=== PATIENT | female | born 2000 | race Caucasian/White ===

== ENCOUNTER 2023-06-08 02:12 | Emergency (ER) | payer OTHER, SELFPAY ==
[2023-06-08 02:16] VITALS: BP 131/92
--- NOTE | 2023-06-08 02:38 | ED.GENMED ---
History of Present Illness
General
Chief Complaint: Ear Problem
Source: patient
Exam Limitations: none
Time Seen by Provider: 06/08/23 02:30
Nursing documentation reviewed up to this point in time: agreed with
Travel History
Have you had any contact with someone who has COVID-19?: No
Do you have any symptoms of coronavirus? Fever > 100 degrees, chills, cough, shortness of breath, sore throat, loss of taste or smell, muscle aches, or headache?: No
History of Present Illness
History of Present Illness:
This is a 23-year-old female who complains of several day history of nasal congestion but tonight awoke with abrupt onset of moderate right ear pain. She has not had a fever nor chills, no sore throat, no cough. Her daughter was diagnosed with
otitis media yesterday.
Patient took ibuprofen 200 mg upon waking 2 hours ago, thus far no relief. She has had no drainage from her ear.
She has remote history of asthma, no recent exacerbations and remote history of otitis media as a child.
She denies risk of .
Past History
Past History
ED Past Medical History: Asthma and Psychiatric
ED Past Surgical History: Cholecystectomy
Patient has exhibited threatening behavior?: No
PSI?: No
Social History
Tobacco: Non-smoker
Alcohol: None
Drug: Marijuana (vape (rare))
Personal: Single
Living: with family
Employment: Not employed
Family History
Family History: Other (Noncontributory)
Phy Exam
Physical Exam
Physical Exam:
GENERAL: 23-year-old female appears her stated age. Sitting upright on stretcher, knees crossed/Canadian style, easily communicative and appears in no acute distress. Exhibits a mild nasal, stuffy voice. Her father is accompanying her.
EYE: pupils equal and reactive. anicteric
NECK: Supple, nontender, no meningismus, no significant adenopathy.
ENT: posterior pharynx is clear, oral mucosa is moist. Left TM is clear. Right TM is significantly red, dull but not bulging. Canal is clear. Nares have moderately boggy pale blue turbinates with scant clear rhinorrhea.
CARDIAC: Regular rate and rhythm. no murmur.
LUNGS: Clear breath sounds bilaterally, no acute respiratory distress, no wheezes/rales/rhonchi
ABDOMEN: Soft, nondistended, without focal tenderness
NEUROLOGICAL: Alert and oriented x3, no focal neuro deficits. Gait is claros and steady.
SKIN: Warm and dry, normal color, skin intact. No rash.
MUSCULOSKELETAL: No C/C/E. peripheral pulses are full and equal b/l. No palpable tenderness.
PSYCH: Normal and appropriate interaction.
Course
Orders/Labs/Results
Orders:
Orders
06/08/23 02:36
Doxycycline [Vibramycin] 100 mg PO NOW STA
Ketorolac [Toradol] 60 mg IM NOW STA
Vital Signs
Initial and Last Documented VS:
Initial Vital Signs
Temp Pulse Resp BP Pulse Ox
98.1 F 83 16 131/92 98
06/08/23 02:16 06/08/23 02:16 06/08/23 02:16 06/08/23 02:16 06/08/23 02:16
Last Documented Vital Signs
Temp Pulse Resp BP Pulse Ox
98.1 F 83 16 131/92 98
06/08/23 02:16 06/08/23 02:16 06/08/23 02:16 06/08/23 02:16 06/08/23 02:16
MDM/Problems Addressed
Differential Diagnosis Includes:
Patient presents with acute right ear pain tonight and exam consistent with acute otitis media.
She is also noted to have moderate allergic rhinitis on exam and does note several day history of nasal congestion prior to onset of ear pain tonight.
She is afebrile and overall nontoxic in appearance.
Will treat acute otitis media with a 10-day course of doxycycline and recommend she start a daily antihistamine such as Claritin, Zyrtec, Ara for allergic rhinitis and will add Flonase nasal spray as well.
Will give a dose of Toradol for pain and recommend she continue [id number] ibuprofen but increase to 600 to 800 mg per dose every 6-8 hours as needed for pain.
Other supportive measures discussed including elevating head of bed on several extra pillows, local heat such as heating pad to her ear may be of comfort as well.
Prompt follow-up with PCP for recheck.
*Pulse Oximetry
Patient hypoxic: no
*Critical Care Note
Total Time (30-74mins, 75-104mins- exclusive of procedures): Not Applicable
ED Attending Note
-
Portions of this chart may have been created with voice recognition software.� Occasional wrong word or��sound alike� substitutions may have occurred due to the inherent limitations of voice recognition software.
Discharge Plan
Departure
Patient Disposition: Home (Routine Discharge)
Date of Disposition: 06/08/23
Time of Disposition: 02:38
Patient with high blood pressure during this ER visit?: No
Condition: Good
Discharge Problem:
Acute right otitis media
Instructions: Ear Infections (Otitis Media) in Adults (DC)
Prescriptions:
New
doxycycline monohydrate 100 mg capsule
100 mg PO BID Qty: 20 1RF
fluticasone propionate 50 mcg/actuation spray,suspension
2 spray intranasal DAILY Qty: 16 0RF
No Action
fluoxetine [Prozac] 20 mg Capsule
20 mg PO DAILY
Referrals:
Gretel Mendoza PA [Family Provider] - Call in 1-3 days for appt
Interventions
Interventions:
*Risk Screen - Suicide Last Done: 06/08/23 02:16
*Neglect/Abuse Screening Last Done: 06/08/23 02:16
*ED COVID-19 Vaccine History Last Done: 06/08/23 02:16
[2023-06-08] MEDS: VIBRAMYCIN 100 MG PO (02:40)
[2023-06-08] MEDS: TORADOL 60 MG IM (02:41)
== END 2023-06-08 02:54 | disposition home or self-care (01) ==
LOC: EMR 02:12
PROVIDERS: EMERGENCY PHYSICIAN Emergency Medicine; FAMILY PHYSICIAN Physician Assistant
DX: H66.91 Otitis media, unspecified, right ear (principal)
CPT/HCPCS: 99284; 96372

== ENCOUNTER 2023-07-10 16:03 | Emergency (ER) | payer OTHER, SELFPAY ==
[2023-07-10 16:12] VITALS: BP 125/85
[2023-07-10 16:38] LABS: % Basophils 0.4 % (0-2); % Immature Granulocytes 0.3 % (0-0.5); % Lymphocytes 28.7 % (20.5-51.1); % Monocytes 7.1 % (1.7-9.3); % Neutrophils 60.5 % (42.2-75.2); Absolute Basophils 0.1 10^3/uL (0-0.2); Absolute Eosinophils 0.3 10^3/uL (0-0.7); Absolute Lymphocytes 3.3 10^3/uL (1.2-3.4); Absolute Monocytes 0.8 10^3/uL (0.1-0.6); Absolute Neutrophils 6.9 10^3/uL (1.4-6.5); Hematocrit 33.4 % (37.0-47.0); Hemoglobin 12.2 g/dL (12.0-16.0); Mean Corp Hgb Conc. 36.5 g/dL (33.0-37.0); Mean Corpuscular Hgb 30.6 pg (27.0-31.0); Mean Corpuscular Volume 83.7 fL (81.0-99.0); Mean Platelet Volume 8.6 fL (7.4-10.4); Nucleated Red Blood Cells % 0 %; Platelet Count 407 10^3/uL (130-400); Red Blood Cell Count 3.99 10^6/uL (4.20-5.40); Red Cell Dist. Width 13.2 % (11.5-14.5); White Blood Cell Count 11.5 10^3/uL (4.8-10.8)
[2023-07-10 16:52] LABS: HCG, Serum Qualitative Screen Positive
[2023-07-10 16:53] LABS: ALT (SGPT) 29 U/L (0-35); AST (SGOT) 30 U/L (14-36); Albumin 4.2 g/dl (3.5-5.0); Alkaline Phosphatase 97 U/L (38-126); Blood Urea Nitrogen 13 mg/dl (7-17); Calcium 9.2 mg/dl (8.4-10.2); Carbon Dioxide 25 mmol/L (22-30); Chloride 106 mmol/L (98-107); Glucose 89 mg/dl (70-99); Potassium 4.2 mmol/L (3.5-5.1); Sodium 135 mmol/L (135-145); Total Bilirubin 0.4 mg/dl (0.2-1.3); Total Protein 7.5 g/dl (6.3-8.2); eGFR > 60.00
[2023-07-10 17:37] LABS: Beta HCG Quantitative 62.45 mIU/ml
--- NOTE | 2023-07-10 18:28 | ED.GENMED ---
History of Present Illness
General
Chief Complaint: Throat Problem
Source: patient
Exam Limitations: none
Time Seen by Provider: 07/10/23 17:37
Nursing documentation reviewed up to this point in time: agreed with
Travel History
Have you had any contact with someone who has COVID-19?: No
Do you have any symptoms of coronavirus? Fever > 100 degrees, chills, cough, shortness of breath, sore throat, loss of taste or smell, muscle aches, or headache?: No
History of Present Illness
History of Present Illness:
23-year-old female past medical history of asthma presenting to the emergency department today with concerns of a positive home test over the past day but also having some sore throat symptoms patient's significant other additionally had
strep throat previously. Denies additional concerns no vaginal bleeding discharge or abdominal pain.
Past History
Past History
ED Past Medical History: Asthma and Psychiatric
ED Past Surgical History: Cholecystectomy
Patient has exhibited threatening behavior?: No
PSI?: No
Social History
Tobacco: Non-smoker
Alcohol: None
Drug: Marijuana (vape (rare))
Personal: Single
Living: with family
Employment: Not employed
Family History
Family History: Other (Noncontributory)
Review of Systems
Review of Systems
Allergies reviewed?: Yes
All Other Systems: ROS reviewed and negative except as documented in HPI and ROS
Phy Exam
Physical Exam
Physical Exam:
GENERAL: Alert , in no apparent distress
EYE: pupils equal and reactive
NECK: Supple, no significant adenopathy.
ENT: Postnasal drip to posterior pharynx no significant tonsillar swelling. o/p clr, mmm.
CARDIAC: Regular rate and rhythm .
LUNGS: Clear breath sounds bilaterally, no acute respiratory distress, no wheezes/rales/rhonchi
ABDOMEN: Soft, without focal tenderness, no r/g, no cvat
NEUROLOGICAL: Alert and oriented, no focal neuro deficits
SKIN: Warm and dry, skin intact.
MUSCULOSKELETAL: No edema, well perfused.
PSYCH: Normal and appropriate interaction.
Course
Orders/Labs/Results
Orders:
Orders
07/10/23 16:15
Test Result ONCE
07/10/23 16:21
Beta HCG Quantitative Urgent
Complete Blood Count/With Diff Urgent
Comprehensive Metabolic Panel Urgent
HCG, Serum Qualitative Screen Urgent
07/10/23 16:55
Add On- LAB Urgent
Tests Added?: hcg quant
Abnormal Lab Results
07/10/23
16:21
WBC 11.5 H 10^3/uL
(4.8-10.8)
RBC 3.99 L 10^6/uL
(4.20-5.40)
Hct 33.4 L %
(37.0-47.0)
Plt Count 407 H 10^3/uL
(130-400)
Absolute Neuts (auto) 6.9 H 10^3/uL
(1.4-6.5)
Absolute Monos (auto) 0.8 H 10^3/uL
(0.1-0.6)
07/10/23 16:21
07/10/23 16:21
Vital Signs
Initial and Last Documented VS:
Initial Vital Signs
Temp Pulse Resp BP Pulse Ox
98.3 F 93 18 125/85 98
07/10/23 16:12 07/10/23 16:12 07/10/23 16:12 07/10/23 16:12 07/10/23 16:12
Last Documented Vital Signs
Temp Pulse Resp BP Pulse Ox
98.3 F 93 18 125/85 98
07/10/23 16:12 07/10/23 16:12 07/10/23 16:12 07/10/23 16:12 07/10/23 16:12
MDM/Problems Addressed
MDM/Problems Addressed:
23-year-old female presenting to the emergency department today with concerns of home test without any significant pelvic symptoms discharge bleeding or pain. Patient additionally has a mild sore throat with swallowing denies any swollen
lymph nodes or fevers. Posterior pharynx with some postnasal drip she was advised to use Flonase but otherwise stable for discharge patient was found to be with a low quant she was advised for close outpatient follow-up with pharmacy specialist.
Return precautions given.
*Critical Care Note
Total Time (30-74mins, 75-104mins- exclusive of procedures): Not Applicable
ED Attending Note
-
Portions of this chart may have been created with voice recognition software.� Occasional wrong word or��sound alike� substitutions may have occurred due to the inherent limitations of voice recognition software.
Discharge Plan
Departure
Patient Disposition: Home (Routine Discharge)
Date of Disposition: 07/10/23
Time of Disposition: 18:33
Patient with high blood pressure during this ER visit?: No
Condition: Good
Covid-19: Not Applicable
Discharge Problem:
Post-nasal drip,
Instructions: hCG Test
Prescriptions:
New
fluticasone propionate [24 Hour Allergy Relief] 50 mcg/actuation spray,suspension
1 spray intranasal DAILY Qty: 16 0RF
No Action
fluoxetine [Prozac] 20 mg Capsule
20 mg PO DAILY
doxycycline monohydrate 100 mg capsule
100 mg PO BID Qty: 20 1RF
fluticasone propionate 50 mcg/actuation spray,suspension
2 spray intranasal DAILY Qty: 16 0RF
Referrals:
Gretel Mendoza PA [Family Provider] -
Activity Restrictions/Additional Instructions:
You came to the emergency department today and were found to have a positive test. Please follow closely with your pharmacy specialist. Additionally use the Flonase to help with the postnasal drip. Return to the emergency department for any
worsening, new or concerning symptoms.
Interventions
Interventions:
*Risk Screen - Suicide Last Done: 07/10/23 16:12
*General Assessment Last Done: 07/10/23 16:12
*Neglect/Abuse Screening Last Done: 07/10/23 16:12
*ED COVID-19 Vaccine History Last Done: 07/10/23 16:12
Discharge Date and Time
Print Language: EGYPTIAN
== END 2023-07-10 18:55 | disposition home or self-care (01) ==
LOC: EMR 16:03
PROVIDERS: Emergency Medicine; EMERGENCY PHYSICIAN Emergency Medicine; FAMILY PHYSICIAN Physician Assistant
DX: O99.891 Other specified diseases and conditions complicating pregnancy (principal); R09.82 Postnasal drip; J45.909 Unspecified asthma, uncomplicated
CPT/HCPCS: 99283; 80053; 84702; 84703; 85025

== ENCOUNTER 2023-08-11 15:53 | Emergency (ER) | payer OTHER, SELFPAY ==
[2023-08-11 16:06] VITALS: BP 102/62
[2023-08-11 16:27] LABS: % Basophils 0.2 % (0-2); % Immature Granulocytes 0.3 % (0-0.5); % Lymphocytes 20.1 % (20.5-51.1); % Monocytes 4.7 % (1.7-9.3); % Neutrophils 73.7 % (42.2-75.2); Absolute Eosinophils 0.1 10^3/uL (0-0.7); Absolute Lymphocytes 2.5 10^3/uL (1.2-3.4); Absolute Monocytes 0.6 10^3/uL (0.1-0.6); Absolute Neutrophils 9.2 10^3/uL (1.4-6.5); Hematocrit 33.5 % (37.0-47.0); Hemoglobin 12.3 g/dL (12.0-16.0); Mean Corp Hgb Conc. 36.7 g/dL (33.0-37.0); Mean Corpuscular Hgb 30.8 pg (27.0-31.0); Mean Platelet Volume 8.6 fL (7.4-10.4); Nucleated Red Blood Cells % 0 %; Platelet Count 401 10^3/uL (130-400); Red Blood Cell Count 3.99 10^6/uL (4.20-5.40); Red Cell Dist. Width 12.3 % (11.5-14.5); White Blood Cell Count 12.5 10^3/uL (4.8-10.8)
[2023-08-11 16:41] LABS: ALT (SGPT) 23 U/L (0-35); AST (SGOT) 28 U/L (14-36); Albumin 4.3 g/dl (3.5-5.0); Alkaline Phosphatase 116 U/L (38-126); Blood Urea Nitrogen 9 mg/dl (7-17); Carbon Dioxide 21 mmol/L (22-30); Chloride 104 mmol/L (98-107); Glucose 97 mg/dl (70-99); Sodium 136 mmol/L (135-145); Total Bilirubin 0.5 mg/dl (0.2-1.3); Total Protein 7.4 g/dl (6.3-8.2); eGFR > 60.00
[2023-08-11 16:42] LABS: Lipase 96 U/L (23-300)
[2023-08-11 18:21] VITALS: BMI 44.2
[2023-08-11 18:26] VITALS: BP 131/77
[2023-08-11] MEDS: NSS 1000 IV (19:02)
[2023-08-11] MEDS: ZOFRAN 4 MG IV (19:02)
[2023-08-11 19:13] LABS: Urine Albumin Trace (Neg - Trace); Urine Bilirubin 1+ (Negative); Urine Character Very Cloudy (Clear); Urine Color Yellow; Urine Glucose Negative (Negative); Urine Ketone 1+ (Negative); Urine Leukocyte Trace (Negative); Urine Nitrite Negative (Negative); Urine Occult Blood Negative (Negative); Urine Urobilinogen Negative (Neg - 1+)
--- NOTE | 2023-08-11 19:35 | ED.GENMED ---
History of Present Illness
General
Chief Complaint: Abdominal Symptoms
Source: patient
Time Seen by Provider: 08/11/23 16:55
Travel History
Have you had any contact with someone who has COVID-19?: No
Do you have any symptoms of coronavirus? Fever > 100 degrees, chills, cough, shortness of breath, sore throat, loss of taste or smell, muscle aches, or headache?: No
History of Present Illness
History of Present Illness:
23-year-old female presents to the emergency room complaining of nausea, vomiting and also some low back pain. Patient is 8 weeks . This is her second . She had hyperemesis with her first . Patient does not have any
real abdominal pain. She denies dysuria. She has decreased urine output. She did not have anything at home to take for nausea.
Past History
Past History
ED Past Medical History: Asthma and Psychiatric
ED Past Surgical History: Cholecystectomy
Patient has exhibited threatening behavior?: No
PSI?: No
Social History
Tobacco: Non-smoker
Alcohol: None
Drug: Marijuana (vape (rare))
Personal: Single
Living: with family
Employment: Not employed
Family History
Family History: Other (Noncontributory)
Phy Exam
Physical Exam
Physical Exam:
General: Awake, Alert, Oriented X3. No acute distress.
Vitals: unremarkable
Head: Atraumatic
Eyes: Pupils equal, EOMI
Throat: Airway intact, no exudates
Neck: Trachea midline
Lungs: Clear and equal b/l
Heart: Regular rate, no murmurs
Abd: Soft, Nontender, No pulsatile mass
Back: Diffuse tenderness to palpation of the lower lumbar region.
Neuro: Nonfocal
Skin: Warm, dry, no rash
Extremities: pulses equal b/l, no edema
Course
Orders/Labs/Results
Orders:
Orders
08/11/23 16:13
Complete Blood Count/With Diff Urgent
Comprehensive Metabolic Panel Urgent
HCG, Beta Quantitative [Beta HCG Quantitative] Urgent
Is this a screen?: No
Lipase Urgent
08/11/23 18:33
0.9% Sodium Chloride 1000 ml [Nss] 1,000 ml IV BOLUS
08/11/23 18:34
Ondansetron Injectable [Zofran] 4 mg IV NOW STA
08/11/23 18:59
Urinalysis Reflex To Culture Urgent
Date Specimen was Collected: 08/11/23
Time Specimen was Collected: 18:42
Urine Microscopic Reflex Cult Urgent
Abnormal Lab Results
08/11/23 08/11/23
16:13 18:59
WBC 12.5 H 10^3/uL
(4.8-10.8)
RBC 3.99 L 10^6/uL
(4.20-5.40)
Hct 33.5 L %
(37.0-47.0)
Plt Count 401 H 10^3/uL
(130-400)
Absolute Neuts (auto) 9.2 H 10^3/uL
(1.4-6.5)
Lymphocytes % 20.1 L %
(20.5-51.1)
Carbon Dioxide 21 L mmol/L
(22-30)
Urine Ketones 1+ A
(Negative)
Urine Bilirubin 1+ A
(Negative)
Leukocyte Esterase Rfl Trace A
(Negative)
Urine Bacteria (Reflex) Few A
(Negative)
08/11/23 16:13
08/11/23 16:13
Vital Signs
Initial and Last Documented VS:
Initial Vital Signs
Temp Pulse Resp BP Pulse Ox
98.2 F 78 18 102/62 99
08/11/23 16:06 08/11/23 16:06 08/11/23 16:06 08/11/23 16:06 08/11/23 16:06
Last Documented Vital Signs
Temp Pulse Resp BP Pulse Ox
98.2 F 73 18 131/77 99
08/11/23 16:06 08/11/23 18:30 08/11/23 18:30 08/11/23 18:26 08/11/23 16:06
MDM/Problems Addressed
Differential Diagnosis Includes:
Hyperemesis, viral gastritis, pyelonephritis
MDM/Problems Addressed:
Urinalysis is cloudy but shows no significant signs of infection.
Labs are reassuring. She has a mild elevation of her white blood cell count which very well may be simply from retching. Patient feeling better after Zofran.
*Pulse Oximetry
Patient hypoxic: no
*Critical Care Note
Total Time (30-74mins, 75-104mins- exclusive of procedures): Not Applicable
ED Attending Note
-
Portions of this chart may have been created with voice recognition software.� Occasional wrong word or��sound alike� substitutions may have occurred due to the inherent limitations of voice recognition software.
Discharge Plan
Departure
Patient Disposition: Home (Routine Discharge)
Date of Disposition: 08/11/23
Time of Disposition: 19:43
Patient with high blood pressure during this ER visit?: No
Condition: Good
Discharge Problem:
Nausea and vomiting during
Instructions: Nausea and Vomiting, Adult (DC), Morning Sickness ED
Prescriptions:
New
ondansetron 4 mg tablet,disintegrating
4 mg PO TID PRN (Reason: nausea and vomiting) Qty: 20 0RF
No Action
fluoxetine [Prozac] 20 mg Capsule
20 mg PO DAILY
doxycycline monohydrate 100 mg capsule
100 mg PO BID Qty: 20 1RF
fluticasone propionate 50 mcg/actuation spray,suspension
2 spray intranasal DAILY Qty: 16 0RF
fluticasone propionate [24 Hour Allergy Relief] 50 mcg/actuation spray,suspension
1 spray intranasal DAILY Qty: 16 0RF
Referrals:
Gretel Mendoza PA [Family Provider] -
Interventions
Interventions:
*Risk Screen - Suicide Last Done: 08/11/23 17:29
*General Assessment Last Done: 08/11/23 16:06
*Neglect/Abuse Screening Last Done: 08/11/23 17:29
ED- Fall Risk Assessment Last Done: 08/11/23 17:29
*ED COVID-19 Vaccine History Last Done: 08/11/23 16:06
*Nursing Disposition Last Done: 08/11/23 19:57
BY-Bjspto-Nnshhvcwui Assessment Last Done: 08/11/23 17:29
Discharge Date and Time
Discharge Date/Time: 08/11/23 19:57
Print Language: TELUGU
[2023-08-11 20:07] LABS: Urine Amorphous Seen
[2023-08-11 20:08] LABS: Urine Bacteria Few (Negative); Urine Red Blood Cell 0-2 /HPF (0-2); Urine White Cell 0-2 /HPF (0-5)
== END 2023-08-11 19:57 | disposition home or self-care (01) ==
LOC: EMR 15:53
PROVIDERS: EMERGENCY PHYSICIAN Emergency Medicine; FAMILY PHYSICIAN Physician Assistant
DX: O26.891 Other specified pregnancy related conditions, first trimester (principal); O21.9 Vomiting of pregnancy, unspecified; Z3A.08 8 weeks gestation of pregnancy
CPT/HCPCS: 99284; 96374; 96361; 80053; 81003; 81015; 83690; 84702; 85025

== ENCOUNTER 2023-08-28 10:26 | Emergency (ER) | payer OTHER, SELFPAY ==
[2023-08-28 11:00] VITALS: BP 130/83
--- NOTE | 2023-08-28 12:02 | ED.GENMED ---
History of Present Illness
General
Chief Complaint: Abdominal Symptoms
Source: patient
Exam Limitations: none
Time Seen by Provider: 08/28/23 11:08
Nursing documentation reviewed up to this point in time: agreed with
Travel History
Have you had any contact with someone who has COVID-19?: No
Do you have any symptoms of coronavirus? Fever > 100 degrees, chills, cough, shortness of breath, sore throat, loss of taste or smell, muscle aches, or headache?: No
History of Present Illness
History of Present Illness:
Patient is a 23-year-old female G2, P1 who is currently 11 weeks and followed by [facility]. Patient reports that she has had intermittent nausea and vomiting throughout the but worse over the last 2 days. She
denies abdominal pain, dysuria and any vaginal bleeding. Patient reports she had hyperemesis with her first as well. Patient reports she vomited about 10 times between yesterday and today. She denies diarrhea. She reports she took
Zofran but this did not help her.
Past History
Past History
ED Past Medical History: Asthma and Psychiatric
ED Past Surgical History: Cholecystectomy
Patient has exhibited threatening behavior?: No
PSI?: No
Social History
Tobacco: Non-smoker
Alcohol: None
Drug: Marijuana (vape (rare))
Personal: Other
Living: with family
Employment: Not employed
Family History
Family History: Other (Noncontributory)
Review of Systems
Review of Systems
Allergies reviewed?: Yes
All Other Systems: ROS reviewed and negative except as documented in HPI and ROS
Constitutional: Reports no symptoms
EENT: Reports no symptoms
Respiratory: Reports no symptoms
Cardiac: Reports no symptoms
ABD/GI: Reports nausea and vomiting
: Reports no symptoms
Musculoskeletal: Reports no symptoms
Skin: Reports no symptoms
Neurological: Reports no symptoms
Endocrine: Reports no symptoms
Hematologic/Lymphatic: Reports no symptoms
Psychiatric: Reports no symptoms
Phy Exam
Physical Exam
Physical Exam:
Physical Exam
General: no apparent distress, not acutely ill. Well and comfortable appearing
Neck: supple. no meningeal signs. normal psoterior pharynx
Heart: s1/s2 regular rate and rhythm, no murmur. equal radial pulses.
Lungs: no acute respiratory distress. clear bilaterally
Abdomen: normal bowel sounds. not tender. no CVAT
Neuro: alert and oriented. no focal neurological deficits
Skin: no rash
Psychiatric: well kept. interactive and cooperative
Extremities: no edema. no calf tenderness. negative homans. good distal pulses
Course
Orders/Labs/Results
Orders:
Orders
08/28/23 12:01
0.9% Sodium Chloride 1000 ml [Nss] 1,000 ml IV BOLUS
08/28/23 12:14
Complete Blood Count/With Diff Urgent
Comprehensive Metabolic Panel Urgent
08/28/23 12:42
Prochlorperazine [Compazine] 10 mg IV NOW STA
08/28/23 12:46
Pyridoxine [Vitamin B-6] 25 mg PO NOW STA
Abnormal Lab Results
08/28/23
12:14
RBC 3.53 L 10^6/uL
(4.20-5.40)
Hgb 10.9 L g/dL
(12.0-16.0)
Hct 29.8 L %
(37.0-47.0)
Absolute Lymphs (auto) 1.0 L 10^3/uL
(1.2-3.4)
Absolute Monos (auto) 0.7 H 10^3/uL
(0.1-0.6)
Neutrophils % 77.0 H %
(42.2-75.2)
Lymphocytes % 13.4 L %
(20.5-51.1)
08/28/23 12:14
08/28/23 12:14
Vital Signs
Initial and Last Documented VS:
Initial Vital Signs
Temp Pulse Resp BP Pulse Ox
98.1 F 91 18 130/83 97
08/28/23 11:00 08/28/23 11:00 08/28/23 11:00 08/28/23 11:00 08/28/23 11:00
Last Documented Vital Signs
Temp Pulse Resp BP Pulse Ox
98.1 F 91 18 130/83 97
08/28/23 11:00 08/28/23 11:00 08/28/23 11:00 08/28/23 11:00 08/28/23 11:00
MDM/Problems Addressed
Differential Diagnosis Includes:
Hyperemesis gravidarum, acute cholecystitis, acute dehydration
MDM/Problems Addressed:
Patient presents with acute nausea and vomiting
*Pulse Oximetry
Patient hypoxic: no
*EKG
Interpreted by ED Provider?: NA
*High School Teacher Interpretation
Rate: High School Teacher- N/A
*Critical Care Note
Total Time (30-74mins, 75-104mins- exclusive of procedures): Not Applicable
Data Reviewed
Review of Other/Old Records Reveals: Labs (Lab work reviewed from 08/11/2023 which shows a mildly elevated white blood cell count)
Source: patient
Patient Management
Discussion with other providers: Other (Spoke to Dr. Sorto via [facility] text who recommended Diclegis, Compazine, Bonjesta)
Update Note
Update Note:
1:40 PM patient reports she feels much better and wants to go home. Her abdomen remains soft and nontender.
ED Attending Note
-
Portions of this chart may have been created with voice recognition software.� Occasional wrong word or��sound alike� substitutions may have occurred due to the inherent limitations of voice recognition software.
Discharge Plan
Departure
Patient Disposition: Home (Routine Discharge)
Date of Disposition: 08/28/23
Time of Disposition: 13:35
Patient with high blood pressure during this ER visit?: Yes
Condition: Good
Covid-19: Not Applicable
Discharge Problem:
Hyperemesis gravidarum
Instructions: Morning Sickness ED
Prescriptions:
New
pyridoxine (vitamin B6) [Vitamin B-6] 25 mg tablet
25 mg PO TID PRN (Reason: nausea and vomiting) Qty: 30 0RF
No Action
fluoxetine [Prozac] 20 mg Capsule
20 mg PO DAILY
doxycycline monohydrate 100 mg capsule
100 mg PO BID Qty: 20 1RF
fluticasone propionate 50 mcg/actuation spray,suspension
2 spray intranasal DAILY Qty: 16 0RF
fluticasone propionate [24 Hour Allergy Relief] 50 mcg/actuation spray,suspension
1 spray intranasal DAILY Qty: 16 0RF
ondansetron 4 mg tablet,disintegrating
4 mg PO TID PRN (Reason: nausea and vomiting) Qty: 20 0RF
Referrals:
Gretel Mendoza PA [Family Provider] -
Estrellita Sorto MD [Active] - (Follow up within 1 week)
Interventions
Interventions:
*Risk Screen - Suicide Last Done: 08/28/23 11:01
*General Assessment Last Done: 08/28/23 11:01
*Neglect/Abuse Screening Last Done: 08/28/23 11:01
ED- Fall Risk Assessment Last Done: 08/28/23 11:57
*ED COVID-19 Vaccine History Last Done: 08/28/23 11:09
*Nursing Disposition Last Done: 08/28/23 13:40
QC-Cnvajk-Heqtpaelzx Assessment Last Done: 08/28/23 11:56
ED-Female Genitourinary Assessment Last Done: 08/28/23 11:56
Discharge Date and Time
Print Language: ZAMBIAN
[2023-08-28] MEDS: NSS 1000 IV (12:15)
[2023-08-28 12:24] LABS: % Basophils 0.3 % (0-2); % Eosinophils 0.1 % (0-6); % Immature Granulocytes 0.3 % (0-0.5); % Lymphocytes 13.4 % (20.5-51.1); % Monocytes 8.9 % (1.7-9.3); Absolute Monocytes 0.7 10^3/uL (0.1-0.6); Absolute Neutrophils 5.7 10^3/uL (1.4-6.5); Hematocrit 29.8 % (37.0-47.0); Hemoglobin 10.9 g/dL (12.0-16.0); Mean Corp Hgb Conc. 36.6 g/dL (33.0-37.0); Mean Corpuscular Hgb 30.9 pg (27.0-31.0); Mean Corpuscular Volume 84.4 fL (81.0-99.0); Mean Platelet Volume 8.7 fL (7.4-10.4); Nucleated Red Blood Cells % 0 %; Platelet Count 246 10^3/uL (130-400); Red Blood Cell Count 3.53 10^6/uL (4.20-5.40); Red Cell Dist. Width 12.7 % (11.5-14.5); White Blood Cell Count 7.4 10^3/uL (4.8-10.8)
[2023-08-28 12:52] LABS: ALT (SGPT) 23 U/L (0-35); AST (SGOT) 26 U/L (14-36); Albumin 3.6 g/dl (3.5-5.0); Alkaline Phosphatase 100 U/L (38-126); Blood Urea Nitrogen 9 mg/dl (7-17); Calcium 9.1 mg/dl (8.4-10.2); Carbon Dioxide 23 mmol/L (22-30); Chloride 104 mmol/L (98-107); Glucose 90 mg/dl (70-99); Potassium 3.8 mmol/L (3.5-5.1); Sodium 136 mmol/L (135-145); Total Bilirubin 0.5 mg/dl (0.2-1.3); Total Protein 6.6 g/dl (6.3-8.2); eGFR > 60.00
[2023-08-28] MEDS: VITAMIN B-6 25 MG PO (13:15)
[2023-08-28] MEDS: COMPAZINE 10 MG IV (13:15)
== END 2023-08-28 14:10 | disposition home or self-care (01) ==
LOC: EMR 10:26
PROVIDERS: EMERGENCY PHYSICIAN Emergency Medicine; FAMILY PHYSICIAN Physician Assistant
DX: O21.0 Mild hyperemesis gravidarum (principal); Z3A.11 11 weeks gestation of pregnancy; O99.511 Diseases of the respiratory system complicating pregnancy, first trimester; J45.909 Unspecified asthma, uncomplicated; Z90.49 Acquired absence of other specified parts of digestive tract; R03.0 Elevated blood-pressure reading, without diagnosis of hypertension; Z88.1 Allergy status to other antibiotic agents
CPT/HCPCS: 99284; 96374; 96361; 80053; 85025

== ENCOUNTER → 2023-09-14 09:27 | Outpatient (REF) | payer OTHER, SELFPAY | LOC: PNTC 09:27 | PROVIDERS: ATTENDING PHYSICIAN Obstetrics & Gynecology | DX: Z36.0 Encounter for antenatal screening for chromosomal anomalies (principal); Z36.82 Encounter for antenatal screening for nuchal translucency | CPT/HCPCS: 59025; 76801; 76813 ==

== ENCOUNTER → 2023-10-05 13:33 | Outpatient (REF) | payer OTHER, SELFPAY | LOC: PNTC 13:33 | PROVIDERS: ATTENDING PHYSICIAN Obstetrics & Gynecology | DX: O99.210 Obesity complicating pregnancy, unspecified trimester (principal); Z34.80 Encounter for supervision of other normal pregnancy, unspecified trimester | CPT/HCPCS: 76805 ==

== ENCOUNTER 2023-10-16 09:21 | Emergency (ER) | payer OTHER, SELFPAY ==
[2023-10-16 09:29] VITALS: BP 122/74
--- NOTE | 2023-10-16 10:15 | ED.GENMED ---
History of Present Illness
General
Chief Complaint: Headache
Source: patient
Exam Limitations: none
Time Seen by Provider: 10/16/23 10:05
Nursing documentation reviewed up to this point in time: agreed with
History of Present Illness
History of Present Illness:
23 yo female 18 weeks is here for headache. She is nauseous and has vomited a couple of times during this and states she knows this is from early and would not be here for the n/v, rather, she is here for a
headache. She did vomit once this a.m. States headache started 2 p.m as she and her boyfriend were picking up totes from a yard sale. H/A came on suddenly and has been constant, frontal, 11/27, she continued her day, doing errands and went to [employer] for dinner. Didn't sleep well last night due to h/a, has taken nothing for the headache as she didn't think she could take anything due to being .
No recent head injury. Denies dizziness, weakness, is ambulating well.
First visit with [facility] in 2-3 weeks.
Past History
Past History
ED Past Medical History: Asthma and Psychiatric
ED Past Surgical History: Cholecystectomy
Patient has exhibited threatening behavior?: No
PSI?: No
Social History
Tobacco: Non-smoker
Alcohol: None
Drug: Marijuana (vape (rare))
Personal: Other
Living: with family
Employment: Not employed
Family History
Family History: Other (Noncontributory)
Review of Systems
Review of Systems
Allergies reviewed?: Yes
All Other Systems: ROS reviewed and negative except as documented in HPI and ROS
Constitutional: Denies fever or fatigue
Respiratory: Denies trouble breathing
Cardiac: Denies chest pain
ABD/GI: Reports nausea and vomiting; Denies abdominal pain or diarrhea
: Denies dysuria or difficulty voiding
Musculoskeletal: Reports no symptoms
Skin: Reports no symptoms
Neurological: Reports headache; Denies dizzy, weakness or numbness
Phy Exam
Physical Exam
Physical Exam:
GENERAL: No acute distress. A&Ox3.
CONSTITUTIONAL: Afebrile.
EYES: PERRL, conjunctivae normal
Neck: Supple
ENMT: moist mucus membranes, Pharynx nl
RESPIRATORY: Regular respirations, nonlabored, lungs clear.
CARDIOVASCULAR: Regular rate and rhythm, no murmurs, no rubs.
GI: Soft, nontender, normal BS
MUSCULOSKELETAL: Moves with ease. Well perfused.
SKIN: Warm, dry, pink
PSYCH: Normal mood and affect. Well kept, interactive and appropriate
NEUROLOGIC: Awake, alert and oriented. Cranial nerves II through XII intact. [id number] intact. No focal neurological deficits. Ambulates well with steady gait.
Course
Orders/Labs/Results
Orders:
Orders
10/16/23 10:14
Acetaminophen [Tylenol] 1,000 mg PO NOW STA
10/16/23 11:28
Diphenhydramine [Benadryl] 50 mg PO NOW STA
10/16/23 11:59
Metoclopramide [Reglan] 10 mg 0.9% Sodium Chloride 50 ml [Nss] 50 ml IV NOW
10/16/23 12:30
Diphenhydramine [Benadryl] 25 mg 0.9% Sodium Chloride 50 ml [Nss] 50 ml IV ONCE@1230
Vital Signs
Initial and Last Documented VS:
Initial Vital Signs
Temp Pulse Resp BP Pulse Ox
99.0 F 97 18 122/74 98
10/16/23 09:29 10/16/23 09:29 10/16/23 09:29 10/16/23 09:29 10/16/23 09:29
Last Documented Vital Signs
Temp Pulse Resp BP Pulse Ox
99.0 F 88 18 109/66 96
10/16/23 09:29 10/16/23 12:49 10/16/23 12:49 10/16/23 12:49 10/16/23 12:49
MDM/Problems Addressed
MDM/Problems Addressed:
23 yo female 18 weeks is here for headache. She is nauseous and has vomited a couple of times during this and states she knows this is from early and would not be here for the n/v, rather, she is here for a
headache. She did vomit once this a.m. States headache started 2 p.m as she and her boyfriend were picking up totes from a yard sale. H/A came on suddenly and has been constant, frontal, 11/27, she continued her day, doing errands and went to [employer] for dinner. Didn't sleep well last night due to h/a, has taken nothing for the headache as she didn't think she could take anything due to being .
No recent head injury. Denies dizziness, weakness, is ambulating well.
First visit with [facility] in 2-3 weeks.
Healthy 23 yo female in no distress, pleasant, smiling.
Normal neuro exam
Admits she hasn't been drinking as much as she should, may be mildly dehydrated
Tylenol and large glass water given
11:40 a.m.
No relief of headache w Tylenol and fluids
Benadryl 25 mg and Reglan 10 mg in 100 ml over 30 minutes ordered
12:30 PM:
After meds, patient states her headache is gone and she is comfortable going home.
Ambulated out with normal gait.
*Critical Care Note
Total Time (30-74mins, 75-104mins- exclusive of procedures): Not Applicable
ED Attending Note
-
Portions of this chart may have been created with voice recognition software.� Occasional wrong word or��sound alike� substitutions may have occurred due to the inherent limitations of voice recognition software.
Discharge Plan
Departure
Patient Disposition: Home (Routine Discharge)
Date of Disposition: 10/16/23
Time of Disposition: 12:38
Patient with high blood pressure during this ER visit?: No
Condition: Good
Discharge Problem:
Headache
Instructions: Headache, Adult (DC)
Prescriptions:
No Action
fluoxetine [Prozac] 20 mg Capsule
20 mg PO DAILY
doxycycline monohydrate 100 mg capsule
100 mg PO BID Qty: 20 1RF
fluticasone propionate 50 mcg/actuation spray,suspension
2 spray intranasal DAILY Qty: 16 0RF
fluticasone propionate [24 Hour Allergy Relief] 50 mcg/actuation spray,suspension
1 spray intranasal DAILY Qty: 16 0RF
ondansetron 4 mg tablet,disintegrating
4 mg PO TID PRN (Reason: nausea and vomiting) Qty: 20 0RF
pyridoxine (vitamin B6) [Vitamin B-6] 25 mg tablet
25 mg PO TID PRN (Reason: nausea and vomiting) Qty: 30 0RF
Referrals:
Gretel Mendoza PA [Family Provider] - As needed
Activity Restrictions/Additional Instructions:
As we discussed,
Tylenol 1000 mg up to 3 times a day for headache
Benadryl 25 mg may also help. Do not take Benadryl for more than every 8 hours for 3 days.
If your headache lasts more than 3 days, see Dr. Mendoza within a week.
Interventions
Interventions:
*Risk Screen - Suicide Last Done: 10/16/23 09:37
*General Assessment Last Done: 10/16/23 09:37
*Neglect/Abuse Screening Last Done: 10/16/23 09:37
*Nursing Disposition Last Done: 10/16/23 12:52
Discharge Date and Time
Discharge Date/Time: 10/16/23 12:53
Print Language: LAO
[2023-10-16] MEDS: TYLENOL 1000 MG PO (10:17)
[2023-10-16] MEDS: REGLAN 52 MG IV (12:22)
[2023-10-16] MEDS: BENADRYL 50.5 MG IV (12:22)
[2023-10-16 12:49] VITALS: BP 109/66
== END 2023-10-16 12:53 | disposition home or self-care (01) ==
LOC: EMR 09:21
PROVIDERS: EMERGENCY PHYSICIAN Emergency Medicine; FAMILY PHYSICIAN Physician Assistant
DX: O21.9 Vomiting of pregnancy, unspecified (principal); O26.892 Other specified pregnancy related conditions, second trimester; R51.9 Headache, unspecified; Z3A.18 18 weeks gestation of pregnancy; O99.512 Diseases of the respiratory system complicating pregnancy, second trimester; J45.909 Unspecified asthma, uncomplicated; Z90.49 Acquired absence of other specified parts of digestive tract; Z88.1 Allergy status to other antibiotic agents
CPT/HCPCS: 99284; 96374; 96375

== ENCOUNTER → 2023-11-02 11:04 | Outpatient (REF) | payer OTHER, SELFPAY | LOC: PNTC 11:04 | PROVIDERS: ATTENDING PHYSICIAN Obstetrics & Gynecology | DX: O99.210 Obesity complicating pregnancy, unspecified trimester (principal) | CPT/HCPCS: 76811 ==

== ENCOUNTER → 2023-12-07 11:32 | Outpatient (REF) | payer OTHER, SELFPAY | LOC: PNTC 11:32 | PROVIDERS: ATTENDING PHYSICIAN Obstetrics & Gynecology | DX: O99.210 Obesity complicating pregnancy, unspecified trimester (principal); O99.320 Drug use complicating pregnancy, unspecified trimester | CPT/HCPCS: 76816 ==

== ENCOUNTER → 2024-02-01 10:46 | Outpatient (REF) | payer OTHER, SELFPAY | LOC: PNTC 10:46 | PROVIDERS: ATTENDING PHYSICIAN Obstetrics & Gynecology | DX: O99.210 Obesity complicating pregnancy, unspecified trimester (principal); O35.5XX0 Maternal care for (suspected) damage to fetus by drugs, not applicable or unspecified | CPT/HCPCS: 59025; 76816 ==

== ENCOUNTER → 2024-02-08 11:01 | Outpatient (REF) | payer OTHER, SELFPAY | LOC: PNTC 11:01 | PROVIDERS: ATTENDING PHYSICIAN Obstetrics & Gynecology | DX: O99.210 Obesity complicating pregnancy, unspecified trimester (principal); O99.320 Drug use complicating pregnancy, unspecified trimester | CPT/HCPCS: 59025; 76815 ==

== ENCOUNTER → 2024-02-13 09:48 | Outpatient (REF) | payer OTHER, SELFPAY | LOC: PNTC 09:48 | PROVIDERS: ATTENDING PHYSICIAN Obstetrics & Gynecology | DX: O99.210 Obesity complicating pregnancy, unspecified trimester (principal); O35.5XX0 Maternal care for (suspected) damage to fetus by drugs, not applicable or unspecified | CPT/HCPCS: 59025; 76815 ==

== ENCOUNTER 2024-02-16 20:29 | Observation (INO) | payer OTHER, SELFPAY ==
[2024-02-16 20:44] VITALS: BP 128/71
[2024-02-16] MEDS: LR 1000 IV (20:52)
[2024-02-16 22:05] LABS: Urine Albumin Trace (Neg - Trace); Urine Bilirubin Negative (Negative); Urine Character Clear (Clear); Urine Color Yellow; Urine Glucose Negative (Negative); Urine Ketone Negative (Negative); Urine Leukocyte Negative (Negative); Urine Nitrite Negative (Negative); Urine Occult Blood Negative (Negative); Urine Urobilinogen Negative (Neg - 1+)
[2024-02-16] MEDS: TYLENOL 1000 MG PO (22:54)
== END 2024-02-17 00:10 | disposition home or self-care (01) ==
LOC: LDRP 20:29
PROVIDERS: ADMITTING PHYSICIAN Student in an Organized Health Care Education/Training Program
DX: R10.9 Unspecified abdominal pain (principal); J45.909 Unspecified asthma, uncomplicated; O99.343 Other mental disorders complicating pregnancy, third trimester; F41.9 Anxiety disorder, unspecified; Z3A.35 35 weeks gestation of pregnancy; O99.213 Obesity complicating pregnancy, third trimester; Z91.199 Patient's noncompliance with other medical treatment and regimen due to unspecified reason; Z88.0 Allergy status to penicillin; Z90.49 Acquired absence of other specified parts of digestive tract; Z83.3 Family history of diabetes mellitus
CPT/HCPCS: 59025; 81003; G0378

== ENCOUNTER 2024-02-20 13:36 | Observation (INO) | payer OTHER, SELFPAY ==
[2024-02-20 13:45] VITALS: BP 125/76; BMI 45.4
[2024-02-20 14:12] LABS: Hematocrit 27.6 % (37.0-47.0); Hemoglobin 9.6 g/dL (12.0-16.0); Mean Corp Hgb Conc. 34.8 g/dL (33.0-37.0); Mean Platelet Volume 8.9 fL (7.4-10.4); Platelet Count 244 10^3/uL (130-400); Red Cell Dist. Width 13.7 % (11.5-14.5); White Blood Cell Count 10.7 10^3/uL (4.8-10.8)
[2024-02-20 14:27] LABS: ALT (SGPT) 13 U/L (0-35); AST (SGOT) 24 U/L (14-36); Albumin 3.3 g/dl (3.5-5.0); Alkaline Phosphatase 203 U/L (38-126); Blood Urea Nitrogen 10 mg/dl (7-17); Calcium 8.7 mg/dl (8.4-10.2); Carbon Dioxide 21 mmol/L (22-30); Chloride 106 mmol/L (98-107); Estimated Creatinine Clearance > 125 ml/min; Glucose 87 mg/dl (70-99); Potassium 3.9 mmol/L (3.5-5.1); Sodium 137 mmol/L (135-145); Total Bilirubin 0.8 mg/dl (0.2-1.3); Total Protein 6.1 g/dl (6.3-8.2); eGFR > 60.00
[2024-02-20 15:26] LABS: Amphetamines Negative (Negative); Barbiturates Negative (Negative); Benzodiazepines Negative (Negative); Buprenorphine Negative (Negative); Cocaine Negative (Negative); Marijuana Negative (Negative); Methadone Negative (Negative); Methamphetamines Negative (Negative); Opiates Negative (Negative); Phencyclidine Negative (Negative); Tricyclic Antidepressants Negative (Negative)
== END 2024-02-20 15:30 | disposition home or self-care (01) ==
LOC: LDRP 13:36
PROVIDERS: ADMITTING PHYSICIAN Obstetrics & Gynecology
DX: O36.8130 Decreased fetal movements, third trimester, not applicable or unspecified (principal); Z3A.36 36 weeks gestation of pregnancy; R11.2 Nausea with vomiting, unspecified; O99.013 Anemia complicating pregnancy, third trimester; D64.9 Anemia, unspecified; Z88.0 Allergy status to penicillin
CPT/HCPCS: 59025; 76815; 80053; 80306; 85027; G0378

== ENCOUNTER → 2024-02-22 11:00 | Outpatient (REF) | payer OTHER, SELFPAY | LOC: PNTC 11:00 | PROVIDERS: ATTENDING PHYSICIAN Obstetrics & Gynecology | DX: O99.210 Obesity complicating pregnancy, unspecified trimester (principal); O99.320 Drug use complicating pregnancy, unspecified trimester | CPT/HCPCS: 59025; 76815 ==

== ENCOUNTER → 2024-02-29 10:57 | Outpatient (REF) | payer OTHER, SELFPAY | LOC: PNTC 10:57 | PROVIDERS: ATTENDING PHYSICIAN Obstetrics & Gynecology | DX: O99.210 Obesity complicating pregnancy, unspecified trimester (principal); O99.320 Drug use complicating pregnancy, unspecified trimester | CPT/HCPCS: 59025; 76816 ==

== ENCOUNTER → 2024-03-07 11:38 | Outpatient (REF) | payer OTHER, SELFPAY | LOC: PNTC 11:38 | PROVIDERS: ATTENDING PHYSICIAN Obstetrics & Gynecology | DX: O99.210 Obesity complicating pregnancy, unspecified trimester (principal); O99.320 Drug use complicating pregnancy, unspecified trimester | CPT/HCPCS: 59025; 76815 ==

== ENCOUNTER 2024-03-18 19:42 | Inpatient (IN) | payer OTHER, SELFPAY ==
[2024-03-18 20:06] VITALS: BP 126/55; BMI 47.6
[2024-03-18 20:29] LABS: Glucose - Point of Care 101 mg/dl (70-99)
[2024-03-18 20:42] LABS: % Basophils 0.2 % (0-2); % Eosinophils 1.3 % (0-6); % Lymphocytes 24.4 % (20.5-51.1); % Monocytes 7.1 % (1.7-9.3); Absolute Eosinophils 0.1 10^3/uL (0-0.7); Absolute Immature Granulocytes 0.1 10^3/uL (0-0.05); Absolute Lymphocytes 2.4 10^3/uL (1.2-3.4); Absolute Monocytes 0.7 10^3/uL (0.1-0.6); Absolute Neutrophils 6.4 10^3/uL (1.4-6.5); Hematocrit 26.3 % (37.0-47.0); Hemoglobin 9.1 g/dL (12.0-16.0); Mean Corp Hgb Conc. 34.6 g/dL (33.0-37.0); Mean Corpuscular Hgb 30.5 pg (27.0-31.0); Mean Corpuscular Volume 88.3 fL (81.0-99.0); Mean Platelet Volume 9.7 fL (7.4-10.4); Nucleated Red Blood Cells % 0.2 %; Platelet Count 226 10^3/uL (130-400); Red Blood Cell Count 2.98 10^6/uL (4.20-5.40); Red Cell Dist. Width 13.6 % (11.5-14.5); White Blood Cell Count 9.8 10^3/uL (4.8-10.8)
[2024-03-18 21:17] LABS: Amphetamines Negative (Negative); Barbiturates Negative (Negative); Benzodiazepines Negative (Negative); Buprenorphine Negative (Negative); Cocaine Negative (Negative); Marijuana Negative (Negative); Methadone Negative (Negative); Methamphetamines Negative (Negative); Opiates Negative (Negative); Phencyclidine Negative (Negative); Tricyclic Antidepressants Negative (Negative)
[2024-03-18] MEDS: CYTOTEC 50 MICROGRAM VAG (22:39)
[2024-03-19] MEDS: LR 1000 IV ×3 (01:50→12:00)
[2024-03-19] MEDS: CYTOTEC 50 MICROGRAM PO (03:30)
[2024-03-19] MEDS: SUBLIMAZE 100 MCG EPIDURAL (06:04)
[2024-03-19] MEDS: FENTANYL/BUPIVACAINE 100 EPIDURAL (06:05)
[2024-03-19] MEDS: ANCEF 10 IV (06:20)
[2024-03-19] MEDS: CYTOTEC PO (06:22)
[2024-03-19] MEDS: ANCEF 5 IV (12:24)
[2024-03-19] MEDS: PITOCIN 30 UNITS/NSS 500 ML IV ×2 (12:26→13:40)
[2024-03-19] MEDS: TRANEXAMIC ACID 100 IV (14:00)
[2024-03-20] MEDS: MOTRIN 600 MG PO ×2 (05:40→23:32)
[2024-03-20 05:45] LABS: Hematocrit 24.5 % (37.0-47.0); Hemoglobin 8.3 g/dL (12.0-16.0)
[2024-03-20] MEDS: FERRLECIT 110 MG IV (09:02)
[2024-03-20] MEDS: TYLENOL 650 MG PO (16:50)
[2024-03-21] MEDS: TYLENOL 650 MG PO (08:14)
[2024-03-21] MEDS: MOTRIN 600 MG PO (08:14)
[2024-03-22 11:18] LABS: Syphilis/T. pallidum Ab Reflex Negative (Negative)
== END 2024-03-21 11:28 | disposition home or self-care (01) | DRG 806 ==
LOC: LDRP 19:42
PROVIDERS: Obstetrics & Gynecology; ADMITTING PHYSICIAN Obstetrics & Gynecology
PROC: 3E0P7VZ Introduction of Hormone into Female Reproductive, Via Natural or Artificial Opening (ICD-10-PCS; 2024-03-18)
PROC: 10D17Z9 Manual Extraction of Products of Conception, Retained, Via Natural or Artificial Opening (ICD-10-PCS; 2024-03-18)
PROC: 0UQMXZZ Repair Vulva, External Approach (ICD-10-PCS; 2024-03-18)
PROC: 10907ZC Drainage of Amniotic Fluid, Therapeutic from Products of Conception, Via Natural or Artificial Opening (ICD-10-PCS; 2024-03-19)
PROC: 10E0XZZ Delivery of Products of Conception, External Approach (ICD-10-PCS; 2024-03-19)
DX: O48.0 Post-term pregnancy (principal); O72.1 Other immediate postpartum hemorrhage; Z37.0 Single live birth; O99.214 Obesity complicating childbirth; E66.811 Obesity, class 1; Z3A.40 40 weeks gestation of pregnancy; O99.824 Streptococcus B carrier state complicating childbirth; O69.81X0 Labor and delivery complicated by cord around neck, without compression, not applicable or unspecified; O71.82 Other specified trauma to perineum and vulva; O77.0 Labor and delivery complicated by meconium in amniotic fluid; O99.344 Other mental disorders complicating childbirth; F41.9 Anxiety disorder, unspecified; F32.A Depression, unspecified
CPT/HCPCS: 88307; 80306; 82962; 85014; 85018; 85025; 86780; 86850; 86900; 86901; J2916